=== PATIENT | female | born 1975 | race Two or more races ===

== ENCOUNTER 2016-11-11 17:19 | Emergency (ER) | payer MEDICARE, OTHER, MEDICAID ==
[2016-11-11] MEDS ORDERED: PROPARACAINE HCL 0.5% 300 GTTS/BOT SOLN.DROP ONE (20:04)
== END 2016-11-11 20:56 | disposition short-term general hospital (02) ==
LOC: ED 17:19
DX: H20.9 Unspecified iridocyclitis (principal); M06.9 Rheumatoid arthritis, unspecified; Z79.899 Other long term (current) drug therapy
CPT/HCPCS: 99284 ×2; A9270